=== PATIENT | female | born 2005 | race Caucasian/White ===

== ENCOUNTER 2023-10-12 13:22 | Emergency (ER) | payer MEDICAID, OTHER ==
[~2023-10-12] VITALS: Ht 152.4 cm; Wt 59.0 kg
[2023-10-12 13:48] VITALS: BP 118/66; PULSE 70; RESP 18; TEMP 98.2; O2SAT 98
== END 2023-10-12 22:42 | disposition left against medical advice (07) ==
LOC: ER 13:22
DX: H92.03 Otalgia, bilateral (principal); Z53.21 Procedure and treatment not carried out due to patient leaving prior to being seen by health care provider
CPT/HCPCS: 99281